=== PATIENT | female | born 1990 | race Caucasian/White ===

== ENCOUNTER 2016-08-18 18:48 | Emergency (ER) | payer OTHER ==
[~2016-08-18] VITALS: Ht 152.4 cm; Wt 49.0 kg
[2016-08-18 20:25] LABS: MEAN CORPUSCULAR HEMOGLOBIN 31.5 pg (27.0-33.0); MEAN CORPUSCULAR VOLUME 95.4 fl (80.0-96.0); RED CELL DISTRIBUTION WIDTH 12.7 % (11.5-14.5); WHITE BLOOD COUNT 5.2 K/mm3 (4.0-10.0)
[2016-08-18 20:54] LABS: CONTROL LINE HCG INT CTR LINE PRESENT
[2016-08-18 21:02] LABS: ALBUMIN/GLOBULIN RATIO 1.25 (1.00-1.93); ALKALINE PHOSPHATASE 61 U/L (45-117); ALT/SGPT 17 U/L (12-78); ANION GAP 6 MEQ/L (8-16); AST/SGOT 18 U/L (15-37); BILIRUBIN,DIRECT < 0.1 MG/DL (0.0-0.2); BILIRUBIN,TOTAL 0.3 MG/DL (0.2-1.0); BLOOD UREA NITROGEN 7 MG/DL (7-18); CALCIUM LEVEL 8.7 MG/DL (8.5-10.1); CARBON DIOXIDE LEVEL 28 MEQ/L (21-32); CHLORIDE LEVEL 105 MEQ/L (98-107); CREATININE FOR GFR 0.64 MG/DL (0.55-1.02); GLOMERULAR FILTRATION RATE > 60.0 (>60); GLUCOSE, FASTING 86 MG/DL (70-105); POTASSIUM SERUM 3.7 MEQ/L (3.5-5.1); SODIUM LEVEL 139 MEQ/L (136-145); TOTAL PROTEIN 7.2 GM/DL (6.4-8.2)
[2016-08-18 21:19] LABS: CONTROL LINE INT CTR LINE PRESENT; METHADONE URINE NEGATIVE (NEGATIVE); TRICYCLIC ANTIDEPRESS URINE NEGATIVE (NEGATIVE)
[2016-08-18 23:04] VITALS: BP 117/76
== END 2016-08-18 23:15 | disposition home or self-care (01) ==
LOC: M ED 20:20
DX: F41.9 Anxiety disorder, unspecified (principal); F32.9 Major depressive disorder, single episode, unspecified
CPT/HCPCS: 36415; 80048; 80076; 80306; 84443; 84703; 85027; 99285; G0480

== ENCOUNTER → 2017-03-15 | Outpatient (REF) | payer OTHER | LOC: M LAB REF 13:01 | PROVIDERS: ATTEND Physician Assistant | DX: R31.9 Hematuria, unspecified (principal) ==

== ENCOUNTER 2017-05-27 22:18 | Outpatient (CLI) | payer OTHER ==
[~2017-05-27] VITALS: Ht 152.4 cm; Wt 60.1 kg
[2017-05-27 22:38] VITALS: BP 118/72
[2017-05-27 23:22] LABS: MEAN CORPUSCULAR VOLUME 102.9 fl (80.0-96.0); PLATELET COUNT, AUTOMATED 213 10^3/uL (150-450); RED CELL DISTRIBUTION WIDTH 13.7 % (11.5-14.5); WHITE BLOOD COUNT 7.9 10^3/uL (4.0-10.0)
[2017-05-27 23:31] LABS: YEAST LIKE CELL URINE AUTO SMALL
--- NOTE | 2017-05-28 00:50 | IPNPDOC ---
Text Note Date of Service The patient was seen on 05/28/17. NOTE Rasheeda is a 26yo with SIUP at 32w2d who presented tonight for "blood in the urine" and back pain on the left side. She states she was concerned because she has had multiple episodes in the past of similar blood in the urine and was always treated for urinary tract infection. She notes the back pain has occurred just today. It is not colicky. No nausea/vomiting, no fevers/chills, no dysuria/increased urge or frequency. No obstetric complaints- no lof/vb/ctx, feels FM. Vitals wnl, temp 99.2F General: WDWN, NAD, resting comfortably in bed Abdomen: soft, NT, ND, gravid Back: no CVA tenderness bilaterally Cat I FHRT with +accels, -decels, mod fabio 2 ctx not felt by patient Labs: Urinalysis: spec grav 1.015, 1+ protein, 3+ blood, negative nitrite, negative LE , 8 WBC, negative bacteria CBC: WBC 7.9, H/H 10.7/32.4, plt 213 Assessment: Rasheeda is a 26yo with SIUP at 32w2d with no evidence of UTI or pyelonephritis. Possible nephrolithiasis since blood in urine, but back pain is not colicky and new onset and mild in nature with patient resting comfortably. UA is negative for nitrite/LE/bacteria and WBC count 7.9, afebrile. Reassuring status. She has had an uncomplicated thus far and PMhx is benign. Plan: -Discharge to home -urine culture pending, suspect there will be no growth -encouraged increased hydration -patient instructed to follow up for routine centering appt next week as scheduled -return precautions discussed MD Rajni Berger VS,Callie, I+O VS, Callie, I+O Laboratory Tests 05/27/17 23:05 Red Blood Count 3.15 L, Mean Corpuscular Volume 102.9 H, Mean Corpuscular Hemoglobin 34.0 H, Mean Corpuscular Hemoglobin Concent 33.0, Red Cell Distribution Width 13.7 Vital Signs Date Time Temp Pulse Resp B/P (MAP) Pulse Ox O2 Delivery O2 Flow Rate FiO2 05/27/17 22:38 99.2 102 18 118/72 (87) Jannet Doe MD May 28, 2017 00:50
== END 2017-05-28 00:40 | disposition home or self-care (01) ==
LOC: M LDO 22:18
PROVIDERS: ATTEND Obstetrics & Gynecology
DX: O99.89 Other specified diseases and conditions complicating pregnancy, childbirth and the puerperium (principal); Z3A.32 32 weeks gestation of pregnancy; R31.9 Hematuria, unspecified

== ENCOUNTER 2017-07-07 21:50 | Outpatient (CLI) | payer OTHER | END 2017-07-07 23:05 | disposition home or self-care (01) | LOC: M LDO 21:50 | DX: O47.1 False labor at or after 37 completed weeks of gestation (principal); Z3A.38 38 weeks gestation of pregnancy; N89.8 Other specified noninflammatory disorders of vagina; O26.893 Other specified pregnancy related conditions, third trimester | CPT/HCPCS: 76815 ==

== ENCOUNTER 2017-07-17 06:06 | Inpatient (IN) | payer OTHER ==
[2017-07-17 08:51] LABS: HEMOGLOBIN 12.2 g/dl (12.0-16.0); MEAN CORPUSCULAR HEMOGLOBIN 33.6 pg (27.0-33.0); MEAN CORPUSCULAR HGB CONC 33.9 g/dl (32.0-36.5); MEAN CORPUSCULAR VOLUME 99.2 fl (80.0-96.0); PLATELET COUNT, AUTOMATED 195 10^3/uL (150-450); RED BLOOD COUNT 3.63 10^6/uL (4.00-5.40); RED CELL DISTRIBUTION WIDTH 12.7 % (11.5-14.5); WHITE BLOOD COUNT 9.8 10^3/uL (4.0-10.0)
[2017-07-17 09:08] LABS: AMPHETAMINES URINE REFLEX NEGATIVE (NEGATIVE); BARBITURATES URINE REFLEX NEGATIVE (NEGATIVE); BENZODIAZEPINES URINE REFLEX NEGATIVE (NEGATIVE); CANNABINOIDS URINE REFLEX NEGATIVE (NEGATIVE); COCAINE METABOLITE URINE REFLE NEGATIVE (NEGATIVE); METHADONE URINE REFLEX NEGATIVE (NEGATIVE); OPIATES URINE REFLEX NEGATIVE (NEGATIVE); PHENCYCLIDINE URINE REFLEX NEGATIVE (NEGATIVE)
[2017-07-17] MEDS ORDERED: FENTANYL 2MCG/ML ROPIVACAINE 0.2% IN 0.9% NACL 200ML IVBAG As Ordered (12:36)
[2017-07-17] MEDS: LACTATED RINGER'S 1000 ML IV (13:53)
[2017-07-17] MEDS ORDERED: REFRIGERATOR IV KEYS XX (14:15)
[2017-07-17] MEDS ORDERED: ONDANSETRON 4MG/2ML VIAL (J2405) IV (14:15)
[2017-07-17] MEDS ORDERED: EPIDURAL/PCA KEYS XX (14:15)
[2017-07-17] MEDS ORDERED: diphenhydrAMINE INJ 50MG/ML VIAL (J1200) IV (14:15)
[2017-07-17] MEDS: FENTANYL/ROPIVACAINE/NACL BAG 200 ML EPIDURAL (14:15)
[2017-07-17] MEDS ORDERED: EPIDURAL COMMENT XX (14:15)
[2017-07-17] MEDS ORDERED: NALOXONE INJ 0.4 MG/1 ML VIAL (J2310) IV (14:15)
[2017-07-17] MEDS ORDERED: ePHEDrine INJ 50 MG/ML VIAL IV (14:15)
[2017-07-17] MEDS ORDERED: LACTATED RINGER'S 1000 ML IV (14:15)
[2017-07-17] MEDS ORDERED: LR 1,000 ML IV (15:15)
[2017-07-17] MEDS: LR 1,000 ML IV (18:13)
[2017-07-17] MEDS: OXYTOCIN DRIP 30 UNITS in APPROPRIATE DILUENT 1 EA IV (18:13)
[2017-07-18] MEDS ORDERED: PROMETHAZINE 25 MG TAB PO
[2017-07-18] MEDS ORDERED: MEASLES,MUMPS,RUBELLA VACCINE INJ (MMR-II) (90707) SC
[2017-07-18] MEDS ORDERED: MOM 30ML SUSPENSION UDC PO
[2017-07-18] MEDS ORDERED: METHYLERGONOVINE MALEATE 0.2 MG TAB PO
[2017-07-18] MEDS ORDERED: DOCUSATE SODIUM 100 MG CAP PO
[2017-07-18] MEDS ORDERED: RHOGAM 300 MCG (1500 IU) INJ (J2790) IM
[2017-07-18] MEDS ORDERED: ONDANSETRON 4MG/2ML VIAL (J2405) IV
[2017-07-18] MEDS: IBUPROFEN 800 MG TAB PO ×3 (01:29→18:04)
[2017-07-18] MEDS: PRENATAL VITAMINS CHEWABLE TABLET PO (08:38)
[2017-07-19] MEDS: ACETAMINOPHEN 500 MG TAB PO ×2 (00:05→22:32)
[2017-07-19] MEDS: IBUPROFEN 800 MG TAB PO ×3 (06:41→23:43)
[2017-07-19] MEDS: PRENATAL VITAMINS CHEWABLE TABLET PO (08:01)
[2017-07-19] MEDS: DIBUCAINE 1% OINTMENT 30GM TOP (22:17)
[2017-07-20] MEDS: PRENATAL VITAMINS CHEWABLE TABLET PO (07:47)
[2017-07-20] MEDS: IBUPROFEN 800 MG TAB PO (07:47)
== END 2017-07-20 12:15 | disposition home or self-care (01) | DRG 775 ==
LOC: M LDO 06:06 → M OBS 07-18 02:39 → M LDI 07:31
PROVIDERS: Student in an Organized Health Care Education/Training Program
PROC: 10907ZC Drainage of Amniotic Fluid, Therapeutic from Products of Conception, Via Natural or Artificial Opening (ICD-10-PCS; 2017-07-17)
PROC: 10E0XZZ Delivery of Products of Conception, External Approach (ICD-10-PCS; principal; 2017-07-18)
PROC: 0KQM0ZZ Repair Perineum Muscle, Open Approach (ICD-10-PCS; 2017-07-18)
DX: O70.1 Second degree perineal laceration during delivery (principal); Z3A.39 39 weeks gestation of pregnancy; O77.0 Labor and delivery complicated by meconium in amniotic fluid; Z37.0 Single live birth